=== PATIENT | male | born 1995 ===

== ENCOUNTER 2017-07-12 00:07 | Emergency (ER) | payer MEDICAID ==
[~2017-07-12] VITALS: Ht 175.3 cm; Wt 91.0 kg
[2017-07-12 00:10] VITALS: Ht 175.3 cm; Wt 91.0 kg
[2017-07-12 03:32] VITALS: BP 138/82; PULSE 82; RESP 19; TEMP 98.7
[2017-07-12] MEDS ORDERED: SOD CHLORIDE 0.9% 500 ML IV STA (03:56)
[2017-07-12 04:22] LABS: BASOPHIL # 0.1 10^3/ul (0.0-0.1); BASOPHILS % 0.8 % (0.0-2.0); EOSINOPHILS # 0.6 10^3/ul (0.0-0.5); HEMATOCRIT 51.9 % (42.0-52.0); HEMOGLOBIN 16.8 g/dl (14.0-18.0); LYMPHOCYTES # 2.8 10^3/ul (0.8-2.9); LYMPHOCYTES % 26.2 % (18.0-55.0); MEAN CORPUSCULAR HEMOGLOBIN 26.7 pg (29.0-33.0); MEAN CORPUSCULAR HGB CONC 32.4 g/dl (32.0-37.0); MEAN CORPUSCULAR VOLUME 82.4 fl (72.0-104.0); MEAN PLATELET VOLUME 11.1 fl (7.4-10.4); PLATELET COUNT 355 10^3/UL (140-415); RED CELL DISTRIBUTION WIDTH 13.9 % (11.5-14.5); WHITE BLOOD COUNT 10.6 10^3/ul (4.8-10.8)
[2017-07-12 04:27] LABS: ADD UMIC NO; UR ASCORBIC ACID NEGATIVE (NEGATIVE); UR BILIRUBIN (Dip) NEGATIVE (NEGATIVE); UR BLOOD (Dip) NEGATIVE (NEGATIVE); UR CLARITY CLEAR (CLEAR); UR COLOR YELLOW (YELLOW); UR GLUCOSE (Dip) NEGATIVE (NEGATIVE); UR KETONES (Dip) NEGATIVE (NEGATIVE); UR LEUKOCYTE ESTERASE (Dip) NEGATIVE Leu/ul (NEGATIVE); UR NITRITE (Dip) NEGATIVE (NEGATIVE); UR SPECIFIC GRAVITY (Dip) 1.015 (1.003-1.030); UR TOTAL PROTEIN (Dip) NEGATIVE (NEGATIVE); UR UROBILINOGEN (Dip) NEGATIVE (NEGATIVE)
[2017-07-12 04:43] LABS: ALBUMIN 4.8 g/dl (3.3-4.9); ALBUMIN/GLOBULIN RATIO 1.45; BILIRUBIN,INDIRECT 0.4 mg/dl (0-1.1); BILIRUBIN,TOTAL 0.4 mg/dl (0.2-1.3); CALCIUM 9.7 mg/dl (8.4-10.2); CREATININE 0.83 mg/dl (0.61-1.24); POTASSIUM 4.3 mmol/L (3.5-5.1); TOTAL PROTEIN 8.1 g/dl (6.1-8.1)
--- NOTE | 2017-07-12 04:46 | RADRPT ---
PROCEDURE: CT of the abdomen and pelvis without contrast CLINICAL INDICATION: Abdominal pain TECHNIQUE: Spiral CT images through the abdomen and pelvis without the use of contrast. The admin istered radiation dose is CTDI 13.35 mGy and DLP 878.02 mGy*cm. Coronal and sagittal reformatted im ages were submitted. One or more of the following dose reduction techniques were used: automated ex posure control, adjustment of the mA and/or kV according to patient size, or use of iterative recons truction technique. COMPARISON: None FINDINGS: Lack of oral and intravenous contrast somewhat limits evaluation. The lung bases are clear. No pl eural or pericardial effusion is seen.. The liver, spleen, adrenal glands and pancreas are normal in appearance. There is evidence of cholel ithiasis or biliary ductal dilatation. The kidneys are normal in size and contour. There are punctat e bilateral renal calculi, greater on the left.. No hydronephrosis is seen. The aorta is normal in caliber. There is a small fat containing umbilical hernia.. There is no evidence for bowel obstruct ion, free air, no free fluid or abscess. The appendix is normal in appearance. there is abundant s tool in the colon and rectum. enlarged right lower quadrant mesenteric lymph nodes are seen. The bl adder is normal. The prostate gland is normal. The osseous structures are intact.. IMPRESSION: Nonobstructing bilateral renal calculi. Nonspecific enlarged right lower quadrant mesenteric lymph nodes. . RPTAT: HCNS Physician Hima Date Time Electronically viewed and signed by Physician Hima on 07/12/2017 04:46 /
--- NOTE | 2017-07-12 05:15 | ERD ---
ER Documentation Chief Complaint Date/Time DATE: 07/12/17 TIME: 05:13 Chief Complaint c/o abd pain x 4 months. Denies n/v/d/f/c. HPI This is a 21-year-old male with midabdominal pain on and off for the past 4 months. Says starts in the bilateral flanks is mild to moderate intensity. Says it radiates down to his groin. Is got worse tonight which is why he came in. His moderate intensity with association with urination. No fevers no chills. No other current complaints ROS All systems reviewed and are negative except as per history of present illness. Medications Home Meds No Active Prescriptions or Reported Meds PMhx/Soc Medical and Surgical Hx: pt denies Medical Hx, pt denies Surgical Hx Hx Alcohol Use: No Hx Substance Use: No Hx Tobacco Use: No Smoking Status: Never smoker Physical Exam Vitals Vital Signs Date Time Temp Pulse Resp B/P Pulse Ox O2 Delivery O2 Flow Rate FiO2 07/12/17 03:32 98.7 82 19 138/82 97 Room Air 07/12/17 00:10 98.7 94 20 141/81 97 Physical Exam Const: [] Head: Atraumatic Eyes: Normal Conjunctiva ENT: Normal External Ears, Nose and Mouth. Neck: Full range of motion..~ No meningismus. Resp: Clear to auscultation bilaterally Cardio: Regular rate and rhythm, no murmurs Abd: Soft, non tender, non distended. Normal bowel sounds Skin: No petechiae or rashes Back: No midline or flank tenderness Ext: No cyanosis, or edema Neur: Awake and alert Psych: Normal Mood and Affect Result Diagram: 07/12/17 0342 07/12/17 0342 Results 24 hrs Laboratory Tests Test 07/12/17 03:42 White Blood Count 10.610^3/ul Red Blood Count 6.3010^6/ul Hemoglobin 16.8g/dl Hematocrit 51.9% Mean Corpuscular Volume 82.4fl Mean Corpuscular Hemoglobin 26.7pg Mean Corpuscular Hemoglobin Concent 32.4g/dl Red Cell Distribution Width 13.9% Platelet Count 09399^3/UL Mean Platelet Volume 11.1fl Neutrophils % 57.0% Lymphocytes % 26.2% Monocytes % 9.0% Eosinophils % 6.0% Basophils % 0.8% Nucleated Red Blood Cells % 0.0/100WBC Neutrophils # 6.010^3/ul Lymphocytes # 2.810^3/ul Monocytes # 1.010^3/ul Eosinophils # 0.610^3/ul Basophils # 0.110^3/ul Nucleated Red Blood Cells # 0.010^3/ul Urine Color YELLOW Urine Clarity CLEAR Urine pH 5.0 Urine Specific [place] 1.015 Urine Ketones NEGATIVEmg/dL Urine Nitrite NEGATIVEmg/dL Urine Bilirubin NEGATIVEmg/dL Urine Urobilinogen NEGATIVEmg/dL Urine Leukocyte Esterase NEGATIVELeu/ul Urine Hemoglobin NEGATIVEmg/dL Urine Glucose NEGATIVEmg/dL Urine Total Protein NEGATIVEmg/dl Sodium Level 140mmol/L Potassium Level 4.3mmol/L Chloride Level 103mmol/L Carbon Dioxide Level 26mmol/L Anion Gap 15 Blood Urea Nitrogen 15mg/dl Creatinine 0.83mg/dl Glucose Level 91mg/dl Calcium Level 9.7mg/dl Total Bilirubin 0.4mg/dl Direct Bilirubin 0.00mg/dl Indirect Bilirubin 0.4mg/dl Aspartate Amino Transf (AST/SGOT) 29IU/L Alanine Aminotransferase (ALT/SGPT) 40IU/L Alkaline Phosphatase 77IU/L Total Protein 8.1g/dl Albumin 4.8g/dl Globulin 3.30g/dl Albumin/Globulin Ratio 1.45 Lipase 114U/L Current Medications Medications (Trade) Dose Ordered Sig/Duncan Route PRN Reason Start Time Stop Time Status Last Admin Dose Admin Sodium Chloride (NS) 500 ml @ 500 mls/hr Q1H STAT IV 07/12/17 03:56 07/12/17 04:55 DC 07/12/17 04:06 Procedures/MDM Medical decision-makin-year-old male is with his past renal stone. At this point clinically stable. This patient be discharged home. He is to follow -up in 8 hours for serial abdominal exams. Departure Diagnosis: Primary Impression: Renal colic Condition: Stable RADHA ROBERTS Jul 12, 2017 05:15
[2017-07-12] MEDS ORDERED: TAMS-14 PO (05:32)
[2017-07-12] MEDS ORDERED: IBUP-1542 PO (05:32)
== END 2017-07-12 05:55 | disposition home or self-care (01) ==
LOC: E/R 00:07
DX: N23 Unspecified renal colic (principal)
CPT/HCPCS: 74176; 80053; 81003; 83690; 85025; 87086; J7040; Z7502